=== PATIENT | female | born 1985 | race Caucasian/White ===

== ENCOUNTER 2018-05-09 16:02 | Inpatient (IN) | payer OTHER ==
[~2018-05-09] VITALS: Ht 162.6 cm; Wt 70.8 kg
[2018-05-13] MEDS ORDERED: OXYTOCIN 30 UNIT/D5LR 500 ML 500 ML IV PRN ×3 (05:28→09:35)
[2018-05-13] MEDS ORDERED: FAMOTIDINE(*) 20MG/50ML PREMIX 50 ML IVPB PRN (05:28)
[2018-05-13] MEDS ORDERED: LR(*) 1000 ML BAG 1,000 ML IV PRN (05:28)
[2018-05-13] MEDS ORDERED: LIDOCAINE 1% LOCAL 300 MG/30ML INJ PRN (05:30)
[2018-05-13] MEDS ORDERED: TERBUTALINE SULF 1 MG/ML VIAL SUBQ PRN (05:30)
[2018-05-13] MEDS ORDERED: METOCLOPRAMIDE 10 MG/2 ML SDV IVP PRN (05:30)
[2018-05-13] MEDS ORDERED: FLUSH 10 ML SYR IVP PRN (05:30)
[2018-05-13] MEDS ORDERED: fentaNYL CITR 100 MCG/2 ML AMP IVP PRN (05:30)
[2018-05-13] MEDS ORDERED: LIDOCAINE/SOD BICARB 8.4% SYR SC PRN (05:30)
[2018-05-13 06:28] LABS: PLATELET COUNT, AUTOMATED 182 K/uL (150-450)
[2018-05-13] MEDS ORDERED: CALC-521 PO (06:35)
[2018-05-13 06:42] VITALS: BP 120/78; Ht 162.6 cm; Wt 70.8 kg
[2018-05-13] MEDS ORDERED: fentaNYL CITR 100 MCG/2 ML AMP IT PRN (07:45)
[2018-05-13] MEDS ORDERED: FENTANYL/ROPIVACAINE 100 ML BAG EPI PRN (07:45)
[2018-05-13] MEDS ORDERED: LIDOCAINE/PF 2% 200MG/10ML AMP 200 MG/10 ML AMPUL EPI PRN (07:45)
[2018-05-13] MEDS ORDERED: LIDO/EPI 2% MPF 1:200,000 20ML EPI PRN (07:45)
[2018-05-13] MEDS ORDERED: EPIDURAL KEYS XX PRN (07:45)
[2018-05-13] MEDS ORDERED: BUPIVACAINE 0.5% INJ 30ML VIAL EPI PRN (07:45)
[2018-05-13] MEDS ORDERED: BUPIVACAINE 0.25% MPF INJ EPI PRN (07:45)
--- NOTE | 2018-05-13 09:28 | History & Physical ---
History of Present Illness Age of Patient: 32 : 4 Para or TPAL: 2 Estimated Gestational Age: 40.4 Chief Complaint IOL History of Present Illness Presents for IOL due to term with favorable cervix: 5 cm. Pt from [place]. uncomplicated. Past Medical, Surgical, Family and Obstetric Histories reviewed. Please see ACOG chart. History Allergies: Coded Allergies: No Known Drug Allergies (Unverified , 05/13/18) Med Rec Home Meds Reported Medications Calcium Carbonate (TUMS) 300 Mg Tab.chew, 300 MG PO, TAB.CHEW 05/13/18 Review of Systems All Systems Reviewed/Normal: Yes, Except as Noted Exam General Exam Vital Signs Vital Signs Date Time Temp Pulse Resp B/P (MAP) Pulse Ox O2 Delivery O2 Flow Rate FiO2 05/13/18 06:42 97.6 95 16 120/78 (92) 98 Room Air General Apperance: Alert/Awake/No Acute Distress Neuro: No Gross deficits Cardiovascular: Regular Rate and Rhythm Respiratory: No Respiratory Distress, Clear to Auscultation Abdomen: Soft, Non-Tender, Non-Distended Integumentary: Skin Intact without Lesions or Rash Psychological: Alert & Oriented X3, Appropriate Mood & Affect Vaginal Discharge/Fluid?: Clear Fluid Cervical Dialation: 5 Cervical Effacement (%): 100 Cervical Consistency: Soft Cervical Position: Anterior Station: -2 Presentation: Vertex Fetus FHT Category: I Medical Decision Making Data Points Result Diagram: 05/13/18 0608 VTE Prophylasis: Adult Deep Vein Thrombosis/Pulmonary: No Pharmacological Contraindicati: Pt at Low Risk for VTE Mechanical Contraindications: Pt at Low Risk for VTE Assessment and Plan [employer] Plan: Routine Labor/Induct Care Problems: (1) 40 weeks gestation of Assessment & Plan: Pitocin IOL. Expecting . PARISA MUNOZ MD May 13, 2018 09:28
--- NOTE | 2018-05-13 11:33 | Anesthesia OB Pre-Anes Eval ---
History of Present Illness Anesthesia Start Date: May 13, 2018 Anesthesia Start Time: 08:45 OB Anesthesia Diagnosis: induction - elective Complications: None known\ EDC: May 09, 2018 : 4 Para: 2 Vital Signs: Vital Signs Date Time Temp Pulse Resp B/P (MAP) Pulse Ox O2 Delivery O2 Flow Rate FiO2 05/13/18 06:42 97.6 95 16 120/78 (92) 98 Room Air Pain Ratin Result Diagram: 05/13/18 0608 Height (Inches): 64.00 Weight (Pounds): 156 BMI (kg/m2): 27 Past Medical History Medical History: no pertinent history Surgical History: no surgical history Previous Anesthesia: epidural Attended Childbirth Classes?: No Hx Anesthesia Reactions: No Hx Family Anesthesia Reaction: No Current Medications: pitocin Home Meds Reported Medications Calcium Carbonate (TUMS) 300 Mg Tab.chew, 300 MG PO, TAB.CHEW 05/13/18 Allergies: Coded Allergies: No Known Drug Allergies (Unverified , 05/13/18) Anesthesia OB ROS Neurological: No migraines/headaches, No seizures, No neuropathy ENT: Denies Tooth caps, Denies Loose teeth, Denies Chipped teeth, Denies Dentures, Denies Bridges, Denies Retainers, Denies Veneers, Denies Implants, Denies Tongue ring Pulmonary: No asthma, No smoker (pks/day/yrs) Airway Class: ll Cardiovascular ROS: No edema, No arrhythmia GI ROS: clear liquids Last Solids Date: May 12, 2018 Last Solids Time: 21:00 ROS: No Herpes, No STD(s), No Liver Disease, No Renal Disease Endocrine ROS: No diabetes, No gestational diabetes, No thyroid disorder Musculoskeletal ROS: No low back pain, No low back injury, No scoliosis ASA Classification: 2 Assessment and Plan Anesthesia Plan: CSE Assessment Past Medical, Surgical, Family and Obstetric Histories reviewed. Please see ACOG chart. Epidural anesthesia risks, complications and benefits explained to patient's satisfaction for labor and vaginal delivery and/or section. General anesthesia risks and benefits explained to patient's satisfaction. Questions invited, none asked. RAVIN SIERRA CRNA May 13, 2018 11:33
--- NOTE | 2018-05-13 11:39 | Procedure Note ---
Anesthetic Placement Note Anesthesia Plan: CSE Permit for Anesthesia Signed: Yes Anesthesia Technique: Patient Sitting Anesthesia Prep: Chlorhexidine Interspace: L 3-4 Local Anesthetic: 1% Lidocaine, 25 Gauge Needle Amount Local - cc's: 2 Anesthesia Needle: 17g Touhy/Schliff Anesthesia Attempts: 1 Loss of Resistance: Air Depth of KIM (cm): 4 Epidural Needle Placement: No CSF, No Blood, No Parasthesia Intrathecal Needle: 27 Gauge Pencan Cerebral Spinal Fluid: Yes, Clear Catheter Insertion (cm): 6 Catheter Type: Kendrick - Spring Wound Epidural Dressing: Tegaderm, Tape, Adhesive [place] Anesthesia Tray: Lot Number ([id number]), Expiration Date (2019-03-25), Reference Number ([id number]) Comment: Excellent tolerance of procedure. She was able to sit with no problems. Anesthesia Medications: Intrathecal Dose: mcg Fentanyl (15), mg Marcaine MPF (1.75), Time (0858) Epidural Test Dose: 1.5 Lido/Epi (1:200,000), Dose - mL (2), Time (09), Negative Epidural Loading Dose: 0.2% Ropivicaine, With Fentanyl 2mcg/ml, Dose - ml (5), Time (09) Epidural Infusion: 0.2% Ropivicaine, With Fentanyl 2mcg/ml, Start Time: (926) Epidural Pump Setting: Bolus Dose - mL (5), Lockout - Minutes (20), Maintenance Rate - mL/hr (6), Maximum per Hour - mL (21) Complications: None Comment: Became comfortable within 5 minutes, does not feel contractions. Encouraged to rest. RAVIN SIERRA CRNA May 13, 2018 11:39
--- NOTE | 2018-05-13 12:24 | Anesthesia Progress Note ---
Progress/Maintenance Anesthesia Note Date: May 13, 2018 Anesthesia Note Time: 12:20 Pain Intensity: 0 Pump: On Pump Rate (ML/HR): 6 Sensory Level: T-12 Motor Level: Bending Knees-Bilateral Dilatation: 10 Position: Semi-Fowlers Drug Bolus: Other (Fentenyl 85 mcgs) Assessment and Plan Assessment Pt. now 10 cms, plans to start pushing. She does feel contractions. Fentenyl per epidural. RAVIN SIERRA CRNA May 13, 2018 12:24
[2018-05-13] MEDS ORDERED: CARBOPROST TROMETHAM 250MCG/ML IM ONLY ONE (14:05)
[2018-05-13] MEDS ORDERED: METHYLERGONOVINE MAL 0.2MG/ML ONE (14:06)
[2018-05-13] MEDS ORDERED: LANOLIN OINT 7 GM TUBE TP PRN (15:00)
[2018-05-13] MEDS ORDERED: HYDROCORTISONE 2.5% CR 30GM TB PR PRN (15:00)
[2018-05-13] MEDS ORDERED: APAP/HYDROCODONE 325/5 TAB PO PRN (15:00)
[2018-05-13] MEDS ORDERED: MAGNESIUM HYDROXIDE* 30ML UDCP PO PRN (15:00)
[2018-05-13] MEDS ORDERED: ACETAMINOPHEN 325 MG TAB PO PRN (15:00)
--- NOTE | 2018-05-13 15:04 | OB Delivery Note ---
Delivery Note Vaginal Delivery Type: Spont. Vaginal Delivery Delivery Date: May 13, 2018 Delivery Time: 14:43 Estimated Gestational Age(wks): 40.4 Delivery Anesthesia: Epidural Sex: Female [place] Apgars: 1 Minute (7), 5 Minute (9) Repair Needed: Laceration, 2nd Degree Estimated Blood Loss: 300 Delivery Complications: Laceration Notes: Progressed with Pitocin from 5 cm to complete by 1214. Initial pushing was not productive and pt allowed to rest and labor down for 30 min. During this time good variability but severe variables noted and some with late returns. I was preparing for forceps delivery when she made a move toward spontaneous delivery. Delivered in LEEANNA position with nuchal cord x 3 delivered through. Good response to resusitation. Placenta delivered spontaneously and intact. Uterus massaged firm and Pitocin administered IV. Second degree laceration noted, repaired. 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
--- NOTE | 2018-05-13 15:10 | Anesthesia Progress Note ---
Progress/Maintenance Anesthesia Note Date: May 13, 2018 Anesthesia Note Time: 14:40 Pain Intensity: 0 Pump: Off Sensory Level: T-12 Motor Level: Bending Knees-Bilateral Dilatation: 10 Position: Semi-Fowlers Drug Bolus: 0.5% Marcaine (4 ml at 1330) Assessment and Plan Assessment No further medication was given. Pt. tolerated delivery and repair work very well. Empty syringe attached to epidural catheter and RN agrees to remove with ambulation. Patient instructed the first ambulation is to be with help of nursing staff. Instructed to preform deep knee bends at bedside before walking. Anesthesia Stop Day: May 13, 2018 Anesthesia Stop Time: 14:40 RAVIN SIERRA CRNA May 13, 2018 15:10
[2018-05-13] MEDS: GLYCERIN/WITCH HAZEL LEAF 1 PK TP PRN (15:44)
[2018-05-13] MEDS: BENZOCAINE 20% 60 ML BTL TP PRN (15:44)
[2018-05-13] MEDS: IBUPROFEN 800 MG TAB PO SCH (17:00)
[2018-05-13 20:58] VITALS: BP 105/64
[2018-05-13] MEDS: DOCUSATE CALCIUM 240 MG CAP PO SCH (21:12)
[2018-05-14 00:30] VITALS: BP 109/68
[2018-05-14] MEDS: IBUPROFEN 800 MG TAB PO SCH ×3 (00:32→16:54)
[2018-05-14 04:30] VITALS: BP 110/63
[2018-05-14 08:16] VITALS: BP 104/70
[2018-05-14] MEDS: DOCUSATE CALCIUM 240 MG CAP PO SCH (08:27)
[2018-05-14] MEDS ORDERED: SERTRALINE HCL 50 MG TAB PO SCH (10:20)
--- NOTE | 2018-05-14 10:22 | OB/GYN Progress Note ---
OB Subjective Progress Notes Subjective Dong well. Feeling well and ambulating and voiding well. Bleeding light. Wants to get started again on her Zoloft 50 mg for mood stabilizer. GI: NEG Nausea : Voiding Well Pain: Mild OB Objective Physical Exam Vital Signs Date Time Temp Pulse Resp B/P (MAP) Pulse Ox O2 Delivery O2 Flow Rate FiO2 05/14/18 08:16 97.9 90 18 104/70 (81) Room Air 05/14/18 04:30 98 Intake and Output 05/14/18 06:59 Intake Total 4000 ml Output Total 1050 ml Balance 2950 ml Intake Oral 0 ml IV Total 4000 ml Output Urine Total 1050 ml # Voids 3 General Appearance: Alert/Awake/No Acute Distress Neurological: No Gross deficits Eyes: Normal Extraocular Movement & Vison Cardiovascular: Normal Rhythm & Peripheral Pulses, Regular Rate and Rhythm Respiratory: No Respiratory Distress, Clear to Auscultation Abdomen: Soft, Non-Tender, Non-Distended, Fundus Firm, Non-Tender Integumentary: Skin Intact without Lesions or Rash Psychological: Alert & Oriented X3, Appropriate Mood & Affect Result Diagram: 05/14/18 0549 Assessment and Plan [place] [employer] Plan: Routine Post- Care, Discharge Home Today Problems: (1) 40 weeks gestation of (2) care and examination immediately after delivery Assessment & Plan: Reviewed discharge instructions. Will see again in office at 6 weeks. PARISA MUNOZ MD May 14, 2018 10:22
[2018-05-14] MEDS ORDERED: IBUP800T37 PO (10:26)
--- NOTE | 2018-05-14 10:28 | OB/GYN Discharge Summary ---
Discharge Summary Reason for Hosp/Final Diag: (1) 40 weeks gestation of (2) care and examination immediately after delivery Hospital Course & Plan: Reviewed discharge instructions. Will see again in office at 6 weeks. [place] Vital Signs Vital Signs Date Time Temp Pulse Resp B/P (MAP) Pulse Ox O2 Delivery O2 Flow Rate FiO2 05/14/18 08:16 97.9 90 18 104/70 (81) Room Air 05/14/18 04:30 98 Weight (Pounds): 156 Result Diagram: 05/14/18 0549 Condition: Improved Discharge: Home, Self Mcfp Meds Reported Medications Calcium Carbonate (TUMS) 300 Mg Tab.chew, 300 MG PO, TAB.CHEW 05/13/18 Follow up Referrals: FLY RAISER LOCKSTITCH - In 6 Weeks @ [facility] with PARISA HO MD Follow up with: Dr. Ho [phone] Follow up in: 6 wks PP or PO Discharge Diet: As Tolerates Discharge Activity: As Tolerates, No Heavy Lifting x 6 wks, No Heavy Lifting > 10lb, Pelvic Rest Copies to: PARISA HO MD ; PARISA HO MD May 14, 2018 10:28
[2018-05-14] MEDS ORDERED: SERT-1 PO (10:40)
[2018-05-14 12:10] VITALS: BP 99/57
--- NOTE | 2018-05-14 13:08 | Anesthesia Post Eval Note ---
Anesthesia Post Eval Note Stabil, afebrile. Pt able to participate in Eval: Yes Cardiovascular Status: Satisfactory Respiratory Status: Satisfactory Pain Managment: Satisfactory PO Nausea/Vomiting: Satisfactory Temperature Management: Satisfactory Mental Status: Satisfactory, Alert, Oriented X3 Post-Op Hydration Status: Satisfactory, Tolerating PO Well, Voiding w/o Difficulty Anesthesia Type: CSE Anesthesia Tolerance: Ambulatory without symptoms PDPH, no apparent complications. DIXON NUNEZ CRNA May 14, 2018 13:08
[2018-05-14 14:58] VITALS: BP 100/59
[2018-05-14] MEDS: GLYCERIN/WITCH HAZEL LEAF 1 PK TP PRN (16:55)
[2018-05-14] MEDS: BENZOCAINE 20% 60 ML BTL TP PRN (16:55)
[2018-05-15] MEDS ORDERED: DIPHTH/TETANUS/ACEL. PERTUSSIS IM ONLY ONE (15:00)
[2018-05-15] MEDS ORDERED: INFLUENZA VIRUS VAC 0.5ML SYR IM ONLY ONE (15:00)
[2018-05-15] MEDS ORDERED: MEASLES,MUMP,RUBELLA VAC 0.5ML SUBQ ONE (15:00)
== END 2018-05-14 17:25 | disposition home or self-care (01) | DRG 807 ==
LOC: OB 05-13 05:26
PROVIDERS: ADMIT Obstetrics & Gynecology; ATTEND Obstetrics & Gynecology
PROC: 10E0XZZ Delivery of Products of Conception, External Approach (ICD-10-PCS; principal; 2018-05-13)
PROC: 0KQM0ZZ Repair Perineum Muscle, Open Approach (ICD-10-PCS; 2018-05-13)
PROC: 3E033VJ Introduction of Other Hormone into Peripheral Vein, Percutaneous Approach (ICD-10-PCS; 2018-05-13)
DX: O69.1XX0 Labor and delivery complicated by cord around neck, with compression, not applicable or unspecified (principal); Z37.0 Single live birth; O70.1 Second degree perineal laceration during delivery; O76 Abnormality in fetal heart rate and rhythm complicating labor and delivery; Z3A.40 40 weeks gestation of pregnancy
CPT/HCPCS: 36415; 85025; 85027; 86703; 86850; 86900; 86901; J2590; J7120